=== PATIENT | female | born 1935 | race Caucasian/White ===

== ENCOUNTER 2018-11-15 19:32 | Emergency (ER) | payer MEDICARE, BC ==
[2018-11-15 20:06] VITALS: PULSE 65
--- NOTE | 2018-11-15 20:31 | CT ---
[id number] CT/CT Head WO IV EXAM: NONCONTRAST HEAD CT INDICATION: Fall with head trauma. COMPARISON: None. DISCUSSION: There is mild generalized atrophy. Mild multifocal white matter hypoattenuation is nonspecific, but generally ascribed to chronic small vessel ischemia. No mass effect or midline shift. No acute hemorrhage or extra-axial fluid collection. No acute territorial infarct is identified. A limited look at the orbits and paranasal sinuses is unremarkable. IMPRESSION: 1. No acute intracranial findings. Jose Wilde MD 11/15/[id number] Thank you for allowing us to participate in the care of your patient.
--- NOTE | 2018-11-15 21:09 | EDM.PDOC ---
ED HPI GENERAL MEDICAL PROBLEM - General Chief Complaint: Head Injury Stated Complaint: Fall, head injury, head laceration Time Seen by Provider: 11/15/18 19:35 Source of Information: Reports: Patient, Family History Limitations: Reports: No Limitations - History of Present Illness INITIAL COMMENTS - FREE TEXT/NARRATIVE: Pt. presents to ER via [facility]. Pt. was seen in their ER for a fall with head injury and was transferred to our facility for head CT. Pt. states that she tripped over her Grandson's legs when she was walking outside and fell, striking her head. Pt. states that she did not have any LOC. She complains of mild headache. Denies any vomiting. It was a mechanical fall and she denies chest pain, shortness of breath, or lightheadedness prior to the fall. Pt. denies any difficulty with speech or ambulation. Pt. seen at ER in [place]-she has a small laceration to L lateral eyebrown which was sutured there. Onset: Today Location: Reports: Head Quality: Reports: Ache headache Pain Score (Numeric/FACES): 3 - Related Data Allergies Allergy/AdvReac Type Severity Reaction Status Date / Time adhesive Allergy Rash Verified 11/15/18 20:04 codeine Allergy Cannot Verified 11/15/18 20:04 Remember perfume Allergy Itching Verified 11/15/18 20:04 propoxyphene HCl Allergy Other Verified 11/15/18 20:04 [From Darvon] zolpidem Allergy Other Verified 11/15/18 20:04 amitriptyline AdvReac Nausea Verified 11/15/18 20:04 hydrocodone bitartrate AdvReac Hallucinati Verified 11/15/18 20:04 [From Lortab] ons morphine AdvReac Nausea and Verified 11/15/18 20:04 Vomiting tramadol AdvReac Nausea and Verified 11/15/18 20:04 Vomiting Home Meds: Home Meds Aspirin [Halfprin] 81 mg PO DAILY 01/17/15 [History] Calcium Carbonate/Vitamin D3 [Calcium 500-Vit D3 200 Tablet] 2 tab PO DAILY 06/29 [History] ClonazePAM [KlonoPIN] 0.5 - 1 tab PO BEDTIME PRN 01/17/15 [History] Cyclobenzaprine [Flexeril] 0.5 tab PO TID PRN 01/17/15 [History] DULoxetine HCl [Duloxetine HCl] 30 mg PO BEDTIME 01/17/15 [History] Desonide [Desonide 0.05%] 1 applic TOP BID PRN 01/17/15 [History] Docusate Sodium [Colace] 2 tab PO BEDTIME 01/17/15 [History] Estrogens, Conjugated [Premarin] 0.625 mg PO DAILY 01/17/15 [History] Fish Oil/[place]-3 Fatty Acids [Fish Oil 1,000 MG] 1,000 mg PO BID 01/17/15 [ History] Hydrocortisone [Hydrocortisone 2.5% Crm] 1 applic TOP TID PRN 01/17/15 [History] Ibuprofen 400 mg PO Q4HR PRN 01/17/15 [History] Lansoprazole [Prevacid] 30 mg PO DAILY 01/17/15 [History] Losartan [Cozaar] 50 mg PO DAILY 01/17/15 [History] Meclizine [Antivert] 1 - 2 tab PO Q4HR PRN 01/17/15 [History] Pentazocine HCl/Naloxone HCl [Pentazocine-Naloxone Tablet] 1 - 2 tab PO Q4HR PRN 01/17/15 [History] Psyllium Husk [Metamucil] 1 cap PO DAILY 01/17/15 [History] Vit B Cplx C No.13/Folic AC/D3 [Nephrocaps Qt Tablet] 1 tab PO DAILY 01/17/15 [ History] Vitamin E 1,000 units PO DAILY 01/17/15 [History] Clotrimazole [Clotrimazole 1%] 1 applic TOP BID PRN #0 01/19/15 [Rx] Gabapentin [Neurontin] 600 mg PO TID #90 01/19/15 [Rx] Diazepam [Valium] 30 mg PO BID 11/11/15 [History] Past Medical History - Past Surgical History Other Musculoskeletal Surgeries/Procedures:: carpal tunnel ED ROS GENERAL - Review of Systems Review Of Systems: See Below Constitutional: Reports: No Symptoms HEENT: Reports: No Symptoms Respiratory: Reports: No Symptoms Cardiovascular: Reports: No Symptoms Endocrine: Reports: No Symptoms GI/Abdominal: Reports: No Symptoms : Reports: No Symptoms Musculoskeletal: Reports: No Symptoms Skin: Reports: No Symptoms Neurological: Reports: Headache. Denies: Trouble Speaking, Difficulty Walking, Weakness, Change in Speech, Gait Disturbance Psychiatric: Reports: No Symptoms Hematologic/Lymphatic: Reports: No Symptoms Immunologic: Reports: No Symptoms ED EXAM, HEAD INJURY - Physical Exam Exam: See Below Exam Limited By: No Limitations General Appearance: Alert, WD/WN, No Apparent Distress Head: Normocephalic, Scalp Lacerations (1 cm laceration to L temporal area.) Nexus Criteria: No: Posterior, Midline Cervical Tenderness, Evidence of Intoxication, Altered Level of Consciousness, Focal Neurological Deficit, Painful Distraction Injuries Eyes: Bilateral Eye: EOMI, Normal Fundi, Normal Inspection, PERRL Nose: Normal Inspection, Normal Mucousa, No Blood Throat/Mouth: Normal Inspection, Normal Lips, Normal Teeth, Normal Gums, Normal Oropharynx, Normal Voice, No Airway Compromise Neck: Non-Tender, Full Range of Motion, Normal Alignment, Normal Inspection Respiratory: No Respiratory Distress, Lungs Clear, Normal Breath Sounds, No Accessory Muscle Use, Chest Non-Tender Cardiovascular: Normal Peripheral Pulses, Regular Rate, Rhythm, No Edema, No Murmur GI/Abdominal Exam: Normal Bowel Sounds, Soft, Non-Tender, No Organomegaly, No Distention (Female) Exam: Deferred Rectal (Female) Exam: Deferred Back Exam: Normal Inspection, Full Range of Motion Extremities: Normal Inspection, Normal Range of Motion, Non-Tender, No Pedal Edema, Normal Capillary Refill Neurologic: knit goods press hand II-XII nml As Tested, No Motor/Sensory Deficits, Alert, Oriented x 3 Skin: Normal Color, Warm/Dry - [place] Coma Score Best Eye Response (Erin): (4) Open Spontaneously Best Verbal Response ([place]): (5) Oriented Best Motor Response (Erin): (6) Obeys Commands Erin Total: 15 Course - Vital Signs Last Recorded V/S: Last Vital Signs Temp 36.3 C 11/15/18 19:35 Pulse 65 11/15/18 19:35 Resp 16 11/15/18 19:35 BP 215/88 H 11/15/18 19:35 Pulse Ox 96 11/15/18 19:35 - Radiology Interpretation Free Text/Narrative:: CT brain negative for acute pathology - Re-Assessments/Exams Free Text/Narrative Re-Assessment/Exam: Pt. was hypertensive on arrival to ER-she states that she gets nervous and attributed it to "white coat" hypertension. Pt. was discharged before provider was informed of BP recheck. Pt. was asymptomatic at time of discharge according to nursing. Departure - Departure Time of Disposition: 21:14 Disposition: Home, Self-Care 01 Condition: Good Clinical Impression: Concussion injury of brain, Laceration - Discharge Information Instructions: Head Injury, Adult Referrals: Luis Alberto Negron PA-C [Primary Care Provider] - Forms: ED Department Discharge Additional Instructions: Home to rest. Tylenol as needed for pain. Return to ER if you have any worsening headache, numbness/tingling in extremities, difficulty with speech or walking, or vomiting. - Assessment/Plan Plan: Home to rest. Tylenol as needed for pain. Return to ER if you have any worsening headache, numbness/tingling in extremities, difficulty with speech or walking, or vomiting.
[2018-11-16 00:46] VITALS: BP 208/90
== END 2018-11-15 20:37 | disposition home or self-care (01) ==
LOC: VM.ED 19:32
DX: S06.0X0A Concussion without loss of consciousness, initial encounter (principal); S01.01XA Laceration without foreign body of scalp, initial encounter; R40.2410 Glasgow coma scale score 13-15, unspecified time; Z79.82 Long term (current) use of aspirin; Z79.899 Other long term (current) drug therapy; Z88.5 Allergy status to narcotic agent; Z88.8 Allergy status to other drugs, medicaments and biological substances; Z91.09 Other allergy status, other than to drugs and biological substances; W01.198A Fall on same level from slipping, tripping and stumbling with subsequent striking against other object, initial encounter
CPT/HCPCS: 70450; 99284-25; 99284-GF